=== PATIENT | male | born 1990 | race Caucasian/White ===

== ENCOUNTER 2022-11-14 16:14 | Emergency (ER) | payer OTHER ==
[~2022-11-14] VITALS: Wt 83.9 kg
== END 2022-11-14 18:34 | disposition home or self-care (01) ==
LOC: ED 16:14
DX: T75.89XA Other specified effects of external causes, initial encounter (principal); X58.XXXA Exposure to other specified factors, initial encounter; Y93.89 Activity, other specified; Y92.89 Other specified places as the place of occurrence of the external cause; Y99.8 Other external cause status

== ENCOUNTER 2022-12-08 16:18 | Emergency (ER) | payer OTHER ==
[~2022-12-08] VITALS: Wt 81.6 kg
[2022-12-08] MEDS ORDERED: WELLBUTRIN XL300 MG PO (16:30)
[2022-12-08] MEDS ORDERED: VENLAFAXINE75 M1 PO (16:31)
[2022-12-08] MEDS ORDERED: ESKALITH,LITHI300 MG PO (16:31)
== END 2022-12-08 17:05 | disposition home or self-care (01) ==
LOC: ED 16:18
DX: S61.212A Laceration without foreign body of right middle finger without damage to nail, initial encounter (principal); W26.9XXA Contact with unspecified sharp object(s), initial encounter; Y93.89 Activity, other specified; Y92.89 Other specified places as the place of occurrence of the external cause; Y99.8 Other external cause status

== ENCOUNTER 2024-07-02 10:56 | Emergency (ER) | payer OTHER ==
[~2024-07-02] VITALS: Ht 167.6 cm; Wt 81.6 kg
[~2024-07-02 10:56] MED LIST: ESKALITH,LITHI300 MG PO; VENLAFAXINE75 M1 PO; WELLBUTRIN XL300 MG PO
== END 2024-07-02 12:41 | disposition home or self-care (01) ==
LOC: ED 10:56
DX: J10.1 Influenza due to other identified influenza virus with other respiratory manifestations (principal); Z20.822 Contact with and (suspected) exposure to COVID-19; F32.A Depression, unspecified